=== PATIENT | male | born 1945 | race Caucasian/White ===

== ENCOUNTER 2019-01-26 14:47 | Emergency (ER) | payer BC ==
[~2019-01-26] VITALS: Ht 188 cm; Wt 77.1 kg
[~2019-01-26 14:47] MED LIST: Aspirin EC81 MG PO; CALCA500CH PO; DOCU100 PO; GLUC500 PO; HYDACE5 PO; MINO100 PO; MULVITMIND PO; ZOLP10 PO
[2019-01-26] MEDS ORDERED: CEPH500 PO (16:38)
== END 2019-01-26 17:06 | disposition home or self-care (01) ==
LOC: ER 14:47
DX: S61.217A Laceration without foreign body of left little finger without damage to nail, initial encounter (principal); Z91.030 Bee allergy status; W22.8XXA Striking against or struck by other objects, initial encounter
CPT/HCPCS: 12001; 73130; 90471; 90714; 99283-25

== ENCOUNTER 2024-02-04 00:27 | Emergency (ER) | payer BC ==
[~2024-02-04] VITALS: Ht 188 cm; Wt 79.4 kg
[~2024-02-04 00:27] MED LIST changes: +CEPH500 PO
[2024-02-04] MEDS ORDERED: Zolpidem Tartra10 MG PO (01:08)
[2024-02-04] MEDS ORDERED: Flomax0.4 MG PO (01:08)
[2024-02-04] MEDS ORDERED: Lidocaine 2% Jelly Uro-Jet TOP ONE (03:40)
[2024-02-04 04:02] LABS: Source, Urine Clean Catch
[2024-02-04 04:17] LABS: Appearance, Urine Clear (Clear); Bilirubin, Urine Neg (Neg); Blood, Urine 5+ (Neg); Color, Urine Yellow (P-Yellow); Glucose Qualitative, Urine Neg (Neg); Ketones, Urine Neg (Neg); Leukocyte Esterase, Urine Neg (Neg); Nitrite, Urine Neg (Neg); Protein, Urine 1+ (Neg); Urobilinogen, Urine NORM (Normal)
[2024-02-04 04:33] LABS: Bacteria Rare /hpf; Red Blood Cells, Urine 25-50 /hpf (0-2); Squamous Epithelial Cells Not Seen /hpf (Few); White Blood Cells, Urine 0-2 /hpf (0-5)
[2024-02-04] MEDS ORDERED: Ketorolac Tromethamine 30mg Vial IV ONE (04:45)
[2024-02-04 05:00] LABS: BASOPHILS ABSOLUTE AUTO 0.01 K/mm3 (0.00-0.23); BASOPHILS PERCENT AUTO 0 % (0-2); EOSINOPHILS ABSOLUTE AUTO 0.07 K/mm3 (0.00-0.68); EOSINOPHILS PERCENT AUTO 1 % (0-6); Hematocrit 36.4 % (37.0-53.0); Hemoglobin 12.4 g/dL (13.5-17.5); IMMATURE GRAN ABSOLUTE AUTO 0.01 K/mm3 (0.00-0.10); IMMATURE GRAN PERCENT AUTO 0 % (0-1); LYMPHOCYTES ABSOLUTE AUTO 1.13 K/mm3 (0.84-5.20); LYMPHOCYTES PERCENT AUTO 22 % (21-46); MONOCYTES ABSOLUTE AUTO 0.55 K/mm3 (0.16-1.47); MONOCYTES PERCENT AUTO 11 % (4-13); Mean Corpuscular HGB 32.9 pg (26.0-34.0); Mean Corpuscular HGB Conc 34.1 g/dL (31.5-36.5); Mean Corpuscular Volume 97 fL (80-100); Mean Platelet Volume 11.3 fL (9.1-12.4); NEUTROPHILS ABSOLUTE AUTO 3.39 K/mm3 (1.96-9.15); NEUTROPHILS PERCENT AUTO 66 % (41-73); Platelet Count 154 K/mm3 (150-400); RDW Coefficient Variation 12.5 % (11.7-14.2); RDW Standard Deviation 44.9 fL (35.1-46.3); Red Blood Cell Count 3.77 M/mm3 (4.30-5.90); White Blood Cell Count 5.16 K/mm3 (4.00-11.30)
[2024-02-04 05:23] LABS: Albumin, Blood 3.5 g/dL (3.4-5.0); Albumin/Globulin Ratio 1.1 (0.8-1.8); Bilirubin, Total 0.5 mg/dL (0.1-1.0); Bun/Creatinine Ratio 24.4 (12.0-20.0); Calcium, Blood 9.3 mg/dL (8.5-10.1); Creatinine, Blood 0.7 mg/dL (0.60-1.20); Globulin, Blood 3.3 g/dL (2.2-4.0); Potassium, Blood 3.7 mmol/L (3.5-5.5); Total Protein, Blood 6.8 g/dL (6.4-8.2)
[2024-02-04] MEDS ORDERED: Acetaminophen 500 MG Tab PO ONE (05:35)
[2024-02-04 07:28] VITALS: BP 126/84
== END 2024-02-04 07:29 | disposition home or self-care (01) ==
LOC: ER 00:27
PROVIDERS: Student in an Organized Health Care Education/Training Program
DX: R33.9 Retention of urine, unspecified (principal); R31.0 Gross hematuria; N40.1 Benign prostatic hyperplasia with lower urinary tract symptoms; Z79.899 Other long term (current) drug therapy; Z91.038 Other insect allergy status
CPT/HCPCS: 51700; 51798; 74177; 80053; 81001; 85025; 99284-25; A9270; J1885; Q9967

== ENCOUNTER 2024-06-21 07:51 | Day surgery (SDC) | payer BC ==
[2024-06-21] VITALS (17 sets, daily range): BP systolic 106–1240; BP diastolic 52–73
[~2024-06-21] VITALS: Ht 188 cm; Wt 70.9 kg
[~2024-06-21 07:51] MED LIST changes: +Flomax0.4 MG PO; +Zolpidem Tartra10 MG PO
[2024-06-21] MEDS ORDERED: Lactated Ringer's 1,000 ML IV SCH ×3 (08:10→09:35)
[2024-06-21] MEDS ORDERED: Tranexamic Acid 100 ML IV SCH (08:10)
[2024-06-21] MEDS ORDERED: Acetaminophen 500 MG Tab PO SCH ×2 (08:10→16:00)
[2024-06-21] MEDS ORDERED: OxyCODONE HCL 10 MG TABCR PO SCH (08:10)
[2024-06-21] MEDS ORDERED: Ropivacaine 0.5% HCl/Pf 123.125 MG,EPINEPHrine HCL 0.25 MG,Ketorolac Tromethamine 15 MG... INFIL SCH (08:10)
[2024-06-21] MEDS ORDERED: CeFAZolin Sodium 2,000 MG in NS 100 ML IV SCH ×2 (08:10→18:00)
[2024-06-21] MEDS ORDERED: Chlorhexidine Mouth Care 15 ML UDC MT SCH (08:10)
[2024-06-21] MEDS ORDERED: FentaNYL Citrate 50 MCG/ML 2 ML Injection ONE (08:54)
[2024-06-21] MEDS ORDERED: propofoL 40 ML IV ONE (08:54)
[2024-06-21] MEDS ORDERED: Midazolam HCl 1MG / ML 2ML Vial ONE (08:54)
[2024-06-21] MEDS ORDERED: Bupivacaine 0.5% HCl 5 MG/ML 30MLVIAL ONE (08:54)
[2024-06-21] MEDS ORDERED: Midazolam HCl 1MG / ML 2ML Vial IV STA (09:03)
[2024-06-21] MEDS ORDERED: Lidocaine HCl 1% 5 ML SYR INJ ONE (09:05)
[2024-06-21] MEDS ORDERED: HYDROmorphone HCl/Pf 1MG SYR IV PRN (09:35)
[2024-06-21] MEDS ORDERED: DiphenhydrAMINE HCL 25 MG Cap PO PRN (09:35)
[2024-06-21] MEDS ORDERED: Magnesium Hydroxide Conc 10 ML UDC PO PRN (09:35)
[2024-06-21] MEDS ORDERED: FLU VACC TS2024-25(6MOS UP)/PF 45 MCG/0.5 ML SYRINGE IM SCH (09:35)
[2024-06-21] MEDS ORDERED: Metoclopramide HCl 5MG / ML 2ML Vial IV PRN (09:40)
[2024-06-21] MEDS ORDERED: Ondansetron HCl 2 MG / ML 2ML Vial IV PRN ×2 (09:40→10:45)
[2024-06-21] MEDS ORDERED: Prochlorperazine Edisylate 10 mg Vial IV PRN (09:40)
[2024-06-21] MEDS ORDERED: Promethazine HCl 25 MG Tab PO PRN (09:40)
[2024-06-21] MEDS ORDERED: OxyCODONE HCL 5 MG TAB PO PRN ×2 (09:40)
[2024-06-21] MEDS ORDERED: Bisacodyl 10 MG Supp PR PRN (09:45)
[2024-06-21] MEDS ORDERED: Lidocaine HCl 2% 20 ML MDV ONE (09:59)
[2024-06-21] MEDS ORDERED: Ondansetron HCl 2 MG / ML 2ML Vial ONE (10:35)
[2024-06-21] MEDS ORDERED: Dexamethasone Sod Phos 10 MG/ML 1ML VIAL ONE (10:35)
[2024-06-21] MEDS ORDERED: Phenylephrine HCl 10mg/ml 1 ml Vial ONE (10:38)
[2024-06-21] MEDS ORDERED: Albuterol 2.5 MG/3 ML VIAL INH PRN (10:40)
[2024-06-21] MEDS ORDERED: Atropine Sulfate 0.1 MG/ML 10ML SYR IV PRN (10:40)
[2024-06-21] MEDS ORDERED: FentaNYL Citrate 50 MCG/ML 2 ML Injection IV PRN ×2 (10:40→10:45)
[2024-06-21] MEDS ORDERED: Ketorolac Tromethamine 30mg Vial ONE (12:00)
[2024-06-21] MEDS ORDERED: Ketorolac Tromethamine 15mg Vial IV SCH (12:00)
--- NOTE | 2024-06-21 12:40 | NUR ---
ARRIVAL NOTE PT INTO ROOM 218 FROM PACU. VSS, PT IS AWAKE AND RESPONSIVE, SENSATION AT L3 AFTER SPINAL, UNABLE TO WIGGLE TOES AT THIS TIME. PT EDUCATED [employer] LIGHT AND TO NOTIFY RN OF RETURN OF SENSATION IN BLE.
--- NOTE | 2024-06-21 18:43 | NUR ---
SHIFT SUMMARY PT IS POD0 FOR R GEOVANY. DRESSING C/D/I. PAS, LUISA SHELLEY, POLAR PACK ON. CAP REFILL IN R TOES 2 SECS, PT HAS FULL SENSATION AFTER SPINAL AND IS A 1 ASST W/ FWW AND GB TO BATHROOM. IS VOIDING, TOLERATING REG DIET AND PO FLUIDS. VSS. PAIN TOLERABLE W/ SCHEDULED MEDS. SALINE LOCKED. PT USING CALL LIGHT APPROPRIATELY.
[2024-06-21] MEDS ORDERED: Docusate Sodium 100 MG Cap PO SCH (21:00)
[2024-06-22 04:20] VITALS: BP 123/64
[2024-06-22 04:38] LABS: BASOPHILS ABSOLUTE AUTO 0.01 K/mm3 (0.00-0.23); BASOPHILS PERCENT AUTO 0 % (0-2); EOSINOPHILS ABSOLUTE AUTO 0.01 K/mm3 (0.00-0.68); EOSINOPHILS PERCENT AUTO 0 % (0-6); Hematocrit 30.4 % (37.0-53.0); Hemoglobin 10.2 g/dL (13.5-17.5); IMMATURE GRAN ABSOLUTE AUTO 0.03 K/mm3 (0.00-0.10); IMMATURE GRAN PERCENT AUTO 0 % (0-1); LYMPHOCYTES ABSOLUTE AUTO 0.99 K/mm3 (0.84-5.20); LYMPHOCYTES PERCENT AUTO 12 % (21-46); MONOCYTES ABSOLUTE AUTO 0.88 K/mm3 (0.16-1.47); MONOCYTES PERCENT AUTO 11 % (4-13); Mean Corpuscular HGB 33.3 pg (26.0-34.0); Mean Corpuscular HGB Conc 33.6 g/dL (31.5-36.5); Mean Corpuscular Volume 99 fL (80-100); Mean Platelet Volume 11.3 fL (9.1-12.4); NEUTROPHILS ABSOLUTE AUTO 6.33 K/mm3 (1.96-9.15); NEUTROPHILS PERCENT AUTO 77 % (41-73); Platelet Count 119 K/mm3 (150-400); RDW Coefficient Variation 12.7 % (11.7-14.2); RDW Standard Deviation 46.6 fL (35.1-46.3); Red Blood Cell Count 3.06 M/mm3 (4.30-5.90); White Blood Cell Count 8.25 K/mm3 (4.00-11.30)
[2024-06-22 05:05] LABS: Bun/Creatinine Ratio 21.6 (12.0-20.0); Calcium, Blood 8.6 mg/dL (8.5-10.1); Creatinine, Blood 0.74 mg/dL (0.60-1.20); Potassium, Blood 4.3 mmol/L (3.5-5.5)
--- NOTE | 2024-06-22 06:23 | NUR ---
SHIFT SUMMARY POD 1 R GEOVANY. NO ACUTE CHANGES OVERNIGHT. VSS. TOLERATING ORALS. VOIDING. PRINEO DRESSING TO ANTERIOR HIP C/D/I. AMBULATION c FWW c SBA. ANTICIPATED TO WORK WITH PHYSCIAL THERAPY AND DISCHARGE LATER TODAY. CALL LIGHT IN REACH, BED IN LOWEST POSITION, WILL REPORT TO DAY RN.
[2024-06-22] MEDS ORDERED: ACET500 PO (07:15)
[2024-06-22 07:16] VITALS: BP 105/50
[2024-06-22] MEDS ORDERED: ASPI81CH PO (07:16)
[2024-06-22] MEDS ORDERED: OXYC5 PO (07:16)
[2024-06-22] MEDS ORDERED: Aspirin 81 MG Chew PO SCH (09:00)
[2024-06-22 09:22] VITALS: BP 135/59
--- NOTE | 2024-06-22 09:48 | NUR ---
WRITTEN AND VERBAL DISCHARGE INSTRUCTIONS PROVIDED TO PT. PT VERBALIZED UNDERSTANDING. PT'S QUESTIONS WERE ANSWERED.
--- NOTE | 2024-06-22 10:46 | NUR ---
DISCHARGE NOTE PT IS VOIDING, TOLERATING REG DIET AND FLUIDS, AMBULATING W/ FWW AND GB SBA. DRESSING ON R HIP C/D/I. PAIN MANAGED W/ SCHEDULED MEDS PER EMAR. PT GIVEN COPY OF D/C INSTRUCTIONS AND DRESSINGS GIVEN TO PT. PT DC'D VIA W/C TO PRIVATE RIDE HOME W/ ALL BELONGINGS. VSS.
== END 2024-06-22 10:47 | disposition home or self-care (01) ==
LOC: ORSCMMR 07:51 → ORD 10:30 → ORSCMMR 10:30 → SURS 12:34 → ORSCMMR 06-22 10:47 → ORD 09-06 07:30
PROVIDERS: Orthopaedic Surgery
PROC: 0SR90JA Replacement of Right Hip Joint with Synthetic Substitute, Uncemented, Open Approach (ICD-10-PCS; principal; 2024-06-21 10:30)
DX: M16.0 Bilateral primary osteoarthritis of hip (principal); N40.0 Benign prostatic hyperplasia without lower urinary tract symptoms; Z79.899 Other long term (current) drug therapy
CPT/HCPCS: 36415; 72170; 80048; 83735; 85025; 94760; 97110; 97116; 97162; 97530; A9270; C1776; J0171; J0690; J0735; J1100; J1885; J2250; J2371; J2405; J2704; J2795; J3010; J7120